=== PATIENT | male | born 1940 | race Two or more races ===

== ENCOUNTER 2023-11-16 08:26 | Outpatient (OUT) | payer MEDICARE, OTHER, SELFPAY ==
[2023-11-16 08:44] LABS: Hemoglobin 14.5 g/dL (14.0-18.0)
--- NOTE | 2023-11-16 09:00 | RT_ITS ---
[facility] Test Date: 2023-11-16 Pat Name: MELISSA QUESADA Department: Room: - Gender: Male Inspector Weights And Measures: Anisha Garza RRT : 1940 Requested By: Nash Youngblood Order Number: [id number] Reading MD: Nash Youngblood Interpretive Statements Pulmonary function testing was completed according to ATS criteria. Findings were considered accurate and reproducible. Both pre- and post-bronchodilator values utilized for spirometry. Due to software limitations, no prior studies (if performed previously) are currently available for comparison. Spirometry (based on pre-bronchodilator values): -FEV1/FVC: Reduced @ 67% -FEV1: Low normal @ 81% -FVC: Normal @ 85% -UGG60-49%: Reduced @ 62% -There is no significant bronchodilator response. Lung volumes by plethysmography (based on pre-bronchodilator values): -RV: Reduced @ 75% -TLC: Mildly reduced @ 78% Diffusion capacity: -DLCO: Severe reduction @ 50% when corrected for Hb 14.5g/dL Flow-volume loop: -Moderate obstructive pattern Impressions: -Spirometry consistent with mild obstructive pattern without a bronchodilator response. Mild concomitant restriction is present. There is a severely reduced diffusion capacity. 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 Clinical correlation required. Electronically Signed On 11-20-2023 7:03:10 EDT by Nash Youngblood
[2023-11-16] MEDS: ALBUTEROL SULFATE 2.5 MG/3 ML VIAL NEB IH (09:36)
== END 2023-11-16 08:27 | disposition home or self-care (01) ==
LOC: CARD 08:28
PROVIDERS: PCP Family Medicine; Visit Provider Internal Medicine
DX: R06.02 Shortness of breath (principal)
CPT/HCPCS: 36415; 85018; 94060; 94640; 94726; 94729